=== PATIENT | female | born 1940 | race Caucasian/White ===

== ENCOUNTER 2018-02-20 15:31 | Observation (INO) ==
--- NOTE | 2018-02-20 17:50 | ED ---
HPI General Chief complaint: Chest Pain Stated complaint: SOB/Pain Time Seen by Provider: 02/20/18 17:44 History of Present Illness HPI narrative: This Is a 77 with a history of anxiety, hyperlipidemia and hypothyroidism resents for evaluation of chest pain. Symptoms started at 3 PM when she was at home resting. She reports that the pain is lateral to her left breast and is intermittent, dull/sharp, typically lasting for several minutes at a time. She has never experienced this type of pain report. She reports that she has chronic anxiety with resultant discomfort in her chest and shortness of breath but this is different. She denies any cough, congestion, acute shortness of breath, abdominal pain, nausea or vomiting, leg swelling. She reports that she took a baby aspirin this morning. She believes that she had a stress test 2-3 years ago that was normal. No other complaints. Related Data Home Medications Medication Instructions Recorded Confirmed aripiprazole [Abilify] 30 mg PO DAILY 02/20/18 02/20/18 carbamazepine [Tegretol] 200 mg PO TID 02/20/18 02/20/18 escitalopram oxalate [Lexapro] 20 mg PO DAILY 02/20/18 02/20/18 omeprazole 40 mg PO DAILY 02/20/18 02/20/18 rosuvastatin [Crestor] 10 mg PO DAILY 02/20/18 02/20/18 Allergies Allergy/AdvReac Type Severity Reaction Status Date / Time No Known Allergies Allergy Verified 02/20/18 17:49 Review of Systems ROS: all other systems reviewed are negative PMFSH Medical History Medical History Anxiety (Acute) H/O: hysterectomy (Acute) High cholesterol (Acute) Skin cancer (Acute) Surgical History Surgical History Hx of appendectomy (Acute) Social History Social History Substance History: No History of Abuse Second Hand Smoke Exposure: No Smoking Status: Never smoker How Often Do You Have a Drink Containing Alcohol: Never Recent Travel in [facility] within the Last 8 Weeks: No Recent Out of Country Travel within the Last 8 Weeks: No Exam Narrative Exam Narrative: GENERAL: Well-developed well-nourished female no acute distress SKIN: Warm and dry. No rash or ecchymosis HEAD: Atraumatic. Normocephalic. EYES: Pupils equal and round. No scleral icterus. No injection or drainage. ENT: No nasal bleeding or discharge. Mucous membranes pink and moist. NECK: Trachea midline. No JVD. CARDIOVASCULAR: Regular rate and rhythm. No murmur appreciated. RESPIRATORY: No accessory muscle use. Clear to auscultation. Breath sounds equal bilaterally. GASTROINTESTINAL: Abdomen soft, non-tender, nondistended. Hepatic and splenic margins not palpable. MUSCULOSKELETAL: No obvious deformities. No clubbing. No cyanosis. No edema. NEUROLOGICAL: Awake and alert. No obvious cranial nerve deficits. Motor grossly within normal limits. Normal speech. Course Initial Documented Vital Signs Temperature 99.3 F 02/20/18 15:45 Pulse Rate 82 02/20/18 15:45 Respiratory Rate 18 02/20/18 15:45 Blood Pressure 121/65 02/20/18 15:45 Pulse Oximetry 97 02/20/18 15:45 Last Documented Vital Signs Temperature 99.3 F 02/20/18 15:45 Pulse Rate 83 02/20/18 20:07 Respiratory Rate 16 02/20/18 20:07 Blood Pressure 145/62 H 02/20/18 20:07 Pulse Oximetry 95 02/20/18 20:07 Medical Decision Making BEBA Attestation BEBA supervised visit: Yes Attestation: I, Dr. Carr, have reviewed the advance practice practitioner's documentation and am in agreement, met with the patient face to face, made the diagnosis, and the medical decision making was done by me. *My assessment and Findings: Patient is a 77-year-old female who presents with complaint of chest pain. She appears well on arrival. Workup thus far has been relatively unremarkable and she has been admitted to the chest pain center for serial troponins and EKGs. MDM Narrative Medical decision making narrative: The patient was placed on ECG monitoring pulse oximetry. A 12-lead EKG was obtained revealing sinus rhythm, rate of 77, first-degree AV block, T wave inversions in V1 and V2, no acute ST elevations. Lab work, chest x-ray ordered. 243 mg aspirin administered. Lab work and imaging studies have been reviewed. Chest x-ray was concerning for possible apical pneumothorax and therefore CT of the chest was obtained revealing no evidence of pneumothorax. The patient was given sublingual nitroglycerin with improvement in her blood pressure. At this point time the plan is to admit her into the chest pain center for serial cardiac enzymes and rule out purposes. She is agreeable. Medical Screen Exam Complete: Yes Emergency Medical Condition: Yes Differential Diagnosis Differential Diagnosis: Pleurisy, costochondritis, pericarditis, myocarditis, aortic dissection, hypertensive urgency, acute coronary syndrome, pneumonia Lab Data Result diagrams: 02/20/18 17:50 02/20/18 17:50 Lab Results 02/20/18 02/20/18 Range/Units 17:50 17:50 WBC 5.3 (4.0-11.0) th/mm3 RBC 4.43 (4.00-5.30) mil/mm3 Hgb 14.5 (11.6-15.3) gm/dL Hct 43.7 (35.0-46.0) % MCV 98.7 (80.0-100.0) fL MCH 32.8 (27.0-34.0) pg MCHC 33.3 (32.0-36.0) % RDW 13.5 (11.6-17.2) % Plt Count 238 (150-450) th/mm3 MPV 8.2 (7.0-11.0) fL Neut % (Auto) 63.4 (16.0-70.0) % Lymph % (Auto) 23.1 (9.0-44.0) % [place] % (Auto) 10.4 H (0.0-8.0) % Eos % (Auto) 2.3 (0.0-4.0) % Baso % (Auto) 0.8 (0.0-2.0) % Neut # (Auto) 3.3 (1.8-7.7) th/mm3 Lymph # (Auto) 1.2 (1.0-4.8) th/mm3 [place] # (Auto) 0.5 (0.0-0.9) th/mm3 Eos # (Auto) 0.1 (0.0-0.4) th/mm3 Baso # (Auto) 0.0 (0.0-0.2) th/mm3 WBC Differential . Differential Comment Auto diff final Sodium 140 (136-145) meq/L Potassium 3.7 (3.5-5.1) meq/L Chloride 105 (98-107) meq/L Carbon Dioxide 29.7 (21.0-32.0) meq/L Anion Gap 5 (5-15) meq/L BUN 18 (7-18) mg/dL Creatinine 0.62 (0.50-1.00) mg/dL Estimated GFR Greater than 89 (>89) mL/min Random Glucose 85 (74-106) mg/dL Calcium 8.6 (8.5-10.1) mg/dL Magnesium 2.5 (1.5-2.5) mg/dL Total Bilirubin 0.2 (0.2-1.0) mg/dL AST 19 (15-37) U/L ALT 18 (10-53) U/L Alkaline Phosphatase 90 (45-117) U/L Total Creatine Kinase 39 (26-192) U/L Troponin I Less than 0.02 L (0.02-0.05) ng/mL Total Protein 6.8 (6.4-8.2) g/dL Albumin 3.6 (3.4-5.0) g/dL Imaging Data Radiologist's impression: Chest X-Ray 02/20/18 17:48 CONCLUSION: 1. Questionable tiny apical pneumothorax on the right. CT could be performed to further evaluate. 2. Hyperinflation suggesting COPD. 3. Mild cardiomegaly. Chest CT 02/20/18 19:09 CONCLUSION: 1. No acute intrathoracic abnormality. In particular, no pneumothorax. 2. Bilateral nonobstructing renal calculi. Discharge Plan Discharge Disposition Patient Disposition: 30 Still Patient Discharge Condition Condition: Stable Discharge Details Diagnosis: Chest pain Physicians Team ED Provider: Christine Carr ED Midlevel Provider: George Luna Primary Care Provider: Diya Coyne Attending Provider: Kyra Adan Status ED Status: Admitted Observation Patient
[2018-02-20 18:09] LABS: Baso % (Auto) 0.8 % (0.0-2.0); Eos # (Auto) 0.1 th/mm3 (0.0-0.4); Eos % (Auto) 2.3 % (0.0-4.0); Hematocrit 43.7 % (35.0-46.0); Hemoglobin 14.5 gm/dL (11.6-15.3); Lymph # (Auto) 1.2 th/mm3 (1.0-4.8); Lymph % (Auto) 23.1 % (9.0-44.0); Mean Corpuscular HGB Conc 33.3 % (32.0-36.0); Mean Corpuscular Hemoglobin 32.8 pg (27.0-34.0); Mean Corpuscular Volume 98.7 fL (80.0-100.0); Mean Platelet Volume 8.2 fL (7.0-11.0); Mono # (Auto) 0.5 th/mm3 (0.0-0.9); Mono % (Auto) 10.4 % (0.0-8.0); Neut # (Auto) 3.3 th/mm3 (1.8-7.7); Neut % (Auto) 63.4 % (16.0-70.0); Platelet Count 238 th/mm3 (150-450); Red Blood Count 4.43 mil/mm3 (4.00-5.30); Red Cell Distribution Width 13.5 % (11.6-17.2); White Blood Count 5.3 th/mm3 (4.0-11.0)
[2018-02-20 18:32] LABS: Albumin 3.6 g/dL (3.4-5.0); Anion Gap 5 meq/L (5-15); Aspartate Aminotransferase 19 U/L (15-37); Blood Urea Nitrogen 18 mg/dL (7-18); Calcium 8.6 mg/dL (8.5-10.1); Carbon Dioxide 29.7 meq/L (21.0-32.0); Chloride 105 meq/L (98-107); Glomerular Filtration Rate Greater Than 89 mL/min (>89); Glucose,Random 85 mg/dL (74-106); Magnesium 2.5 mg/dL (1.5-2.5); Potassium 3.7 meq/L (3.5-5.1); Sodium 140 meq/L (136-145)
[2018-02-20 18:33] LABS: Alanine Aminotransferase 18 U/L (10-53)
[2018-02-20 18:36] LABS: Alkaline Phosphatase 90 U/L (45-117); Total Protein 6.8 g/dL (6.4-8.2)
[2018-02-20 18:50] LABS: Creatine Kinase 39 U/L (26-192)
--- NOTE | 2018-02-20 19:00 | XR ---
EXAM DATE: 02/20/2018 6:44 PM EST AGE/SEX: 77 years / Female INDICATIONS: Chest pain. CLINICAL DATA: This is the patient's initial encounter. Patient reports that signs and symptoms have been present for 1 day and indicates a pain score of 4/10. MEDICAL/SURGICAL HISTORY: . Congestive heart failure. Chronic abdominal pain. GB disease. Hyste rectomy. Appendectomy . COMPARISON: [facility] [place], CHEST SINGLE AP, 02/06/2016. . FINDINGS: A single AP view of the chest demonstrates lack of vascular markings involving the extreme right apex concerning for possible tiny apical pneumothorax. The lungs are hyper aerated but clear. Heart is mi ldly enlarged. No pulmonary vascular engorgement. No infiltrates or effusions. Bony structures are un remarkable. CONCLUSION: 1. Questionable tiny apical pneumothorax on the right. CT could be performed to further evaluate. 2. Hyperinflation suggesting COPD. 3. Mild cardiomegaly. Electronically signed by: Jamal Iyer MD 02/20/2018 6:58 PM EST
--- NOTE | 2018-02-20 20:02 | CT ---
EXAM DATE: 02/20/2018 7:50 PM EST AGE/SEX: 77 years / Female INDICATIONS: Evaluate for pneumothorax CLINICAL DATA: This is the patient's initial encounter. Patient reports that signs and symptoms have been present for 1 day and indicates a pain score of 6/10. MEDICAL/SURGICAL HISTORY: Carcinoma, skin cancer. Appendectomy. Hysterectomy. RADIATION DOSE: 6.07 CTDI (mGy) COMPARISON: No prior exams available for comparison. TECHNIQUE: Multiple contiguous axial images were obtained through the chest without contrast. Image s were obtained in suspended respiration using multiple row detector helical technique. Using automa isabel exposure control and adjustment of the mA and/or kV according to patient size, radiation dose was kept as low as reasonably achievable to obtain optimal diagnostic quality images. DICOM format imag e data is available electronically for review and comparison. FINDINGS: Lungs: The lungs are symmetrically aerated. No infiltrates or nodular densities are seen. No pneumo thorax. Mediastinum: There is good visualization of the great vessels of the middle mediastinum. No evidenc e of mediastinal or hilar adenopathy/mass. Pleurae: No pneumothorax or effusion. Mild apical pleural thickening bilaterally.. Axillae: Unremarkable. Bony Structures: Unremarkable. Miscellaneous: The examination was extended to include the upper abdomen, and both adrenal glands ar e normal in size and configuration. Partial visualization of the kidneys reveal nonobstructing bilate ral renal calculi. The largest stone measures 1 cm on the right. CONCLUSION: 1. No acute intrathoracic abnormality. In particular, no pneumothorax. 2. Bilateral nonobstructing renal calculi. Electronically signed by: Jamal Iyer MD 02/20/2018 8:00 PM EST
[2018-02-20] MEDS ORDERED: Pantoprazole Inj 40 MG Vial IV.PUSH ONE (20:07)
[2018-02-20 21:41] LABS: Creatine Kinase 30 U/L (26-192)
[2018-02-20 23:59] LABS: Creatine Kinase 34 U/L (26-192)
--- NOTE | 2018-02-21 08:04 | P.HPCA ---
History of Present Illness Primary Care Physician: Diya Coyne Chief Complaint: Chest pain History of Present Illness: This is a 77-year-old female with history of hyperlipidemia, hypothyroidism, and anxiety that presents to ED stating "I always have pain in my chest." States she is a gets it when she is anxious. Yesterday just occurred more frequently. It was a quick shock type of discomfort and would recur about every 5-10 minutes. She states she has had this evaluated in the past and follows a email operations manager. She follows Dr. Adan and last saw her in June of this year. States she has had stress tests but cannot recall most recent. He generally becomes short of breath with the symptoms as well. Denies nausea or diaphoresis. Currently has no complaints. History of hyperlipidemia, hypothyroidism, anxiety, she states she has chest pain quite frequently. Denies diabetes, hypertension, and known CAD. Cannot recall if he had any blood in her family with CAD. Quit smoking 50 years ago. - Diagnosis (1) Atypical chest pain (2) Anxiety (3) Hyperlipidemia (4) Hypothyroidism Review of Systems General: Patient denies fevers, chills, and recent travel. HEENT: Patient denies headache, sore throat, difficulty swallowing. Cardiovascular: Has the chest discomfort as mentioned above. Denies sensation of heart beating rapidly or irregularly. No syncope. Denies diaphoresis. Respiratory: She generally has shortness of breath when her discomforts occur. Denies shortness of breath or inspirational chest discomfort. Denies coughing wheezing or hemoptysis. GI: Patient denies nausea, vomiting, diarrhea, abdominal pain, bloody stools. Musculoskeletal: Patient denies joint pain or edema. Denies calf pain or edema. Neurovascular: Patient denies numbness, tingling, weakness in extremities. Denies headache. Endocrine: Denies polyuria and polydipsia. Hematologic: Denies easy bruising. Skin: Denies rash or itching. PMFSH - History History Provided By: Patient - Medical History Medical History: Medical History (Last Updated 02/20/18 @ 17:49 by Tali Aguilar) Anxiety H/O: hysterectomy High cholesterol Skin cancer - Surgical History Surgical History: Surgical History (Last Updated 02/20/18 @ 17:49 by Tali Aguilar) Hx of appendectomy - Tobacco History Second Hand Smoke Exposure: No Smoking Status: Never smoker - Alcohol History How Often Do You Have a Drink Containing Alcohol: Never - Substance Use History Substance History: No History of Abuse - Travel History Recent Travel in the [place] Within the Last 8 Weeks: No Recent Travel Out of the Country Within the Last 8 Weeks: No - Immunization History Tetanus Immunization: >5 Years Medications and Allergies Active Medications: Active Medications Sodium Chloride (Ns Flush) 2 ml IV.FLUSH UNSCH PRN PRN Reason: FLUSH AFTER USING IV ACCESS Sodium Chloride (Ns Flush) 2 ml IV.FLUSH BID DHEERAJ Last Admin: 02/20/18 23:06 Dose: Not Given Sodium Chloride (Ns Flush) 2 ml IV.FLUSH PRN PRN PRN Reason: FLUSH AFTER USING IV ACCESS Allergies Allergy/AdvReac Type Severity Reaction Status Date / Time No Known Allergies Allergy Verified 02/20/18 17:49 Home Medications Medication Instructions Recorded Confirmed Type aripiprazole [Abilify] 30 mg PO DAILY 02/20/18 02/20/18 History carbamazepine [Tegretol] 200 mg PO TID 02/20/18 02/20/18 History escitalopram oxalate [Lexapro] 20 mg PO DAILY 02/20/18 02/20/18 History omeprazole 40 mg PO DAILY 02/20/18 02/20/18 History rosuvastatin [Crestor] 10 mg PO DAILY 02/20/18 02/20/18 History Exam Vital signs: Vital Signs 02/20/18 15:45 02/20/18 17:50 02/20/18 19:00 Temperature 99.3 F Pulse Rate 82 69 Respiratory Rate 18 21 Blood Pressure 121/65 219/100 H 215/97 H Pulse Oximetry 97 98 02/20/18 19:58 02/20/18 20:07 02/20/18 21:09 Temperature Pulse Rate 79 83 78 Respiratory Rate 16 16 16 Blood Pressure 178/91 H 145/62 H 145/74 H Pulse Oximetry 98 95 02/20/18 23:01 02/20/18 23:08 02/21/18 03:51 Temperature 98.4 F 97.8 F Pulse Rate 67 69 67 Respiratory Rate 17 17 Blood Pressure 122/60 144/65 H Pulse Oximetry 96 97 Intake & Output 02/20/18 02/21/18 02/21/18 18:59 06:59 18:59 Intake Total 240 / 240 Balance 240 / 240 Weight 52.617 kg 52.617 kg Intake: Oral 240 / 240 Other: # Voids 3 Weight On Admission 52.617 kg Narrative: GENERAL: This is a well-nourished, well-developed patient, in no apparent distress. Patient speaks in clear complete sentences. Patient is pleasant. HEENT: Head is atraumatic and normocephalic. Neck is supple without lymphadenopathy and trachea is midline. No JVD or carotid bruits. CARDIOVASCULAR: Regular rate and rhythm without murmurs, gallops, or rubs. RESPIRATORY: Clear to auscultation. Breath sounds equal bilaterally. No wheezes , rales, or rhonchi. Chest wall is nontender. No use of accessory muscles. GASTROINTESTINAL: Abdomen is nontender, nondistended. Abdomen soft. No obvious pulsatile mass or bruit. No CVA tenderness. Strong femoral pulses bilaterally. Normal bowel sounds in all quadrants. MUSCULOSKELETAL: Patient is moving upper and lower extremities freely. No calf tenderness or edema, no Homans sign. Strong pulses in upper and lower extremities. NEUROLOGICAL: Patient is alert and oriented. Cranial nerves 2-12 are grossly intact. No focal deficits and speech is clear. SKIN: No rash and turgor is normal. Results 02/20/18 17:50 02/20/18 17:50 Cardiac Enzymes 02/20/18 02/20/18 02/20/18 Range/Units 17:50 20:20 23:25 AST 19 (15-37) U/L Troponin I Less than 0.02 L Less than 0.02 L Less than 0.02 L (0.02-0.05) ng/mL CBC 02/20/18 Range/Units 17:50 WBC 5.3 (4.0-11.0) th/mm3 RBC 4.43 (4.00-5.30) mil/mm3 Hgb 14.5 (11.6-15.3) gm/dL Hct 43.7 (35.0-46.0) % Plt Count 238 (150-450) th/mm3 Neut # (Auto) 3.3 (1.8-7.7) th/mm3 Lymph # (Auto) 1.2 (1.0-4.8) th/mm3 [place] # (Auto) 0.5 (0.0-0.9) th/mm3 Eos # (Auto) 0.1 (0.0-0.4) th/mm3 Baso # (Auto) 0.0 (0.0-0.2) th/mm3 Comprehensive Metabolic Panel 02/20/18 Range/Units 17:50 Sodium 140 (136-145) meq/L Potassium 3.7 (3.5-5.1) meq/L Chloride 105 (98-107) meq/L Carbon Dioxide 29.7 (21.0-32.0) meq/L BUN 18 (7-18) mg/dL Creatinine 0.62 (0.50-1.00) mg/dL Calcium 8.6 (8.5-10.1) mg/dL AST 19 (15-37) U/L ALT 18 (10-53) U/L Alkaline Phosphatase 90 (45-117) U/L Total Protein 6.8 (6.4-8.2) g/dL Albumin 3.6 (3.4-5.0) g/dL Intake and Output 02/20/18 02/21/18 02/21/18 22:59 06:59 14:59 Intake Total 240 / 240 Balance 240 / 240 Intake: Oral 240 / 240 Other: # Voids 3 Weight 52.617 kg Weight On Admission 52.617 kg - Imaging and Cardiology Imaging: Impressions Chest X-Ray 02/20/18 17:48 CONCLUSION: 1. Questionable tiny apical pneumothorax on the right. CT could be performed to further evaluate. 2. Hyperinflation suggesting COPD. 3. Mild cardiomegaly. Chest CT 02/20/18 19:09 CONCLUSION: 1. No acute intrathoracic abnormality. In particular, no pneumothorax. 2. Bilateral nonobstructing renal calculi. EKG interpretations - EKG EKG shows: sinus rhythm (EKGs are sinus rhythm with first-degree AV block. No significant ST segment depressions or elevations.) Caprini VTE Risk Assessment Caprini VTE Risk Assessment: Moderate/High Risk (score >= 2) Caprini Risk Assessment Model: Point Value = 1 Point Value = 2 Point Value = 3 Point Value = 5 Age 41-60 Minor surgery BMI > 25 kg/m2 Swollen legs Varicose veins or History of unexplained or recurrent spontaneous Oral contraceptives or hormone replacement Sepsis (< 1 month) Serious lung disease, including pneumonia (< 1 month) Abnormal pulmonary function Acute myocardial infarction Congestive heart failure (< 1 month) History of inflammatory bowel disease Medical patient at bed rest Age 61-74 Arthroscopic surgery Major open surgery (> 45 min) Laparoscopic surgery (> 45 min) Malignancy Confined to bed (> 72 hours) Immobilizing plaster cast Central venous access Age >= 75 History of VTE Family history of VTE Factor V Leiden Prothrombin [id number] Lupus anticoagulant Anticardiolipin antibodies Elevated serum homocysteine Heparin-induced thrombocytopenia Other congenital or acquired thrombophilia Stroke (< 1 month) Elective arthroplasty Hip, pelvis, or leg fracture Acute spinal cord injury (< 1 month) Prophylaxis Regimen: Total Risk Factor Score Risk Level Prophylaxis Regimen 0-1 Low Early ambulation 2 Moderate Order ONE of the following: *Sequential Compression Device (SCD) *Heparin 5000 units SQ BID 3-4 Higher Order ONE of the following medications: *Heparin 5000 units SQ TID *Enoxaparin/Lovenox 40 mg SQ daily (WT < 150 kg, CrCl > 30 mL/min) *Enoxaparin/Lovenox 30 mg SQ daily (WT < 150 kg, CrCl > 10-29 mL/min) *Enoxaparin/Lovenox 30 mg SQ BID (WT < 150 kg, CrCl > 30 mL/min) AND/OR *Sequential Compression Device (SCD) 5 or more Highest Order ONE of the following medications: *Heparin 5000 units SQ TID (Preferred with Epidurals) *Enoxaparin/Lovenox 40 mg SQ daily (WT < 150 kg, CrCl > 30 mL/min) *Enoxaparin/Lovenox 30 mg SQ daily (WT < 150 kg, CrCl > 10-29 mL/min) *Enoxaparin/Lovenox 30 mg SQ BID (WT < 150 kg, CrCl > 30 mL/min) AND *Sequential Compression Device (SCD) Assessment and Plan - Assessment (1) Atypical chest pain Code(s): R07.89 - Other chest pain Status: Acute (2) Anxiety Code(s): F41.9 - Anxiety disorder, unspecified Status: Acute (3) Hyperlipidemia Code(s): E78.5 - Hyperlipidemia, unspecified Status: Acute (4) Hypothyroidism Code(s): E03.9 - Hypothyroidism, unspecified Status: Acute - Plan * Atypical chest pain: Patient has had serial cardiac enzymes and EKGs for ruling out purposes. She has been seen by Dr. Kadeem Garrett of cardiology in the chest pain center. Her symptoms seem atypical, last a split second and has been having them for years. She states she has had normal stress test in the past. She follows Dr. Adan. Dr. Kadeem Garrett spoke with her email operations manager Dr. Adan. Patient will be discharged home at this time with instructions to follow-up with her PCP and email operations manager. Return to ED for interval issues. * Hyperlipidemia: Continue medication. * Hypothyroidism: Continue medication. * Anxiety: Continue medication and follow-up with your psychiatrist Patient is stable at this time. She is agreeable to this plan. H&P: Quality - VTE Deep Vein Thrombosis/Pulmonary Embolism Present on Admission: No
[2018-02-21 08:27] VITALS: BP 130/66; PULSE 76; RESP 16; TEMP 98.6
[2018-02-21 08:30] VITALS: O2SAT 97
[2018-02-21] MEDS ORDERED: carBAMazepine 200 MG Tablet PO SCH (09:00)
--- NOTE | 2018-02-21 15:28 | ECG ---
Date Performed: 02/20/2018 Time Performed: 23:13:34 PTAGE: 77 years EKG: Sinus rhythm WITH FIRST DEGREE AV BLOCK ABNORMAL ECG PREVIOUS TRACING : 02/20/2018 20.38 Since previous tracing, no significant change noted DOCTOR: Kadeem Garrett Interpretating Date/Time 02/21/2018 15:27:21
--- NOTE | 2018-02-21 15:29 | ECG ---
Date Performed: 02/20/2018 Time Performed: 20:38:45 PTAGE: 77 years EKG: Sinus rhythm WITH FIRST DEGREE AV BLOCK INTERPRETATION BASED ON A DEFAULT AGE OF 40 YEARS PREVIOUS TRACING : 02/20/2018 15.59 Since previous tracing, no significant change noted DOCTOR: Kadeem Garrett Interpretating Date/Time 02/21/2018 15:27:55
--- NOTE | 2018-02-21 15:30 | ECG ---
Date Performed: 02/20/2018 Time Performed: 15:59:49 PTAGE: 77 years EKG: Sinus rhythm WITH FIRST DEGREE AV BLOCK POSSIBLE LEFT ATRIAL ENLARGEMENT INTERPRETATION BASED ON A DEFAULT AGE OF 40 YEARS NO PREVIOUS TRACING DOCTOR: Kadeem Garrett Interpretating Date/Time 02/21/2018 15:28:20
== END 2018-02-21 09:30 | disposition home or self-care (01) ==
LOC: NEDA 15:31 → NEPE 15:31 → NEDA 21:36 → NEPGCP 21:41
PROVIDERS: ADMIT Internal Medicine Interventional Cardiology; ATTEND Internal Medicine Interventional Cardiology